=== PATIENT | male | born 1955 | race Caucasian/White ===

== ENCOUNTER → 2019-04-28 09:02 | Outpatient (BNVA) | payer MEDICARE, OTHER, SELFPAY | PROVIDERS: PCP Family Medicine; Visit Provider Nurse Practitioner Family | DX: E11.65 Type 2 diabetes mellitus with hyperglycemia (principal); Z12.5 Encounter for screening for malignant neoplasm of prostate; I10 Essential (primary) hypertension; D75.89 Other specified diseases of blood and blood-forming organs; E78.5 Hyperlipidemia, unspecified; M79.89 Other specified soft tissue disorders | CPT/HCPCS: 80053; 80061; 82044; 83036; 83735; 85025; G0103 ==

== ENCOUNTER → 2020-04-24 11:44 | Outpatient (BNVA) | payer MEDICARE, OTHER, SELFPAY | PROVIDERS: PCP Family Medicine; Visit Provider Family Medicine | DX: E11.65 Type 2 diabetes mellitus with hyperglycemia (principal); E78.5 Hyperlipidemia, unspecified; I10 Essential (primary) hypertension; Z12.5 Encounter for screening for malignant neoplasm of prostate | CPT/HCPCS: 80053; 80061; 83036; 84443; 85025; G0103 ==

== ENCOUNTER → 2020-07-31 09:26 | Outpatient (BNVA) | payer MEDICARE, OTHER, SELFPAY | PROVIDERS: PCP Family Medicine; Visit Provider Internal Medicine | DX: Z12.11 Encounter for screening for malignant neoplasm of colon (principal); Z20.822 Contact with and (suspected) exposure to COVID-19 | CPT/HCPCS: 87635 ==

== ENCOUNTER 2020-08-04 08:00 | Day surgery (SDC) | payer MEDICARE, OTHER, SELFPAY ==
[2020-08-02 12:20] VITALS: BMI 26.6
[2020-08-04 08:10] VITALS: BP 116/82; PULSE 87; RESP 18; TEMP 36.5; O2SAT 97
[2020-08-04] MEDS: sodium chloride 0.9% 1,000 ML 30 ML IV (08:14)
[2020-08-04 08:26] LABS: Glucose Point of Care 99 mg/dL (70-110)
--- NOTE | 2020-08-04 08:37 | ANES.PREANE2 ---
Pre-Anesthetic Assessment Pre-Anesthetic Assessment: Height/Weight: Height 1.91 m Weight 96.615 kg Temp Pulse Resp BP Pulse Ox 97.7 F 87 18 116/82 97 08/04/20 08:10 08/04/20 08:10 08/04/20 08:10 08/04/20 08:10 08/04/20 08:10 Preop Diagnosis: screen Proposed Procedure: Operation Date: 08/04/20 09:00 Proposed Procedures p Colonoscopy 61017 z12.11(Not Applicable) - Lio Jaffe MD Was Beta Sree taken within 24 hours: N/A Was Clonidine taken within 24 hours: N/A Last intake: Intake Last Liquid Date 08/03/20 Last Liquid Time 21:00 Last Solid Date 08/03/20 Last Solid Time 08:00 Social: Social History: Alcohol (4-5 drinks per day Beer and Liquor ) and No tobacco Exam: Pre-Anes Outpt Exam: alert and oriented x 3 Airway: Submandibular: WNL Cervical ROM: WNL MP: 2 Dentition: Full History/ROS: No significant history except as noted Pulmonary: Pulmonary: None reported CV/HEM: CV/HEM: HTN : : None reported Hepatic: Hepatic: None reported GI: GI: GERD (controlled no S/S currently) Metabolic: Metabolic: DM and Hyperlipidemia Musc/skel: Musc/skel: None reported Neuropsych: Neuropsych: None reported Anesthetic Plan: ASA status: 3 Anesthesia: Anesthesia Evaluation and MAC Risk of > 500 ml blood loss (7ml/kg in children): No Meds/Allergies Current Medications: Current Medications Generic Name Dose Route Start Last Admin Trade Name Freq PRN Reason Stop Dose Admin Sodium Chloride 1,000 mls @ 30 ml s/hr 08/04/20 08:15 08/04/20 08:14 Sodium Chloride 0.9% IV 08/05/20 08:14 30 mls/hr .Q24H VERONICA Administration PFSH Anesthesia PFSH: Medical History Chronic laryngitis Diabetes mellitus GERD (gastroesophageal reflux disease) Hyperlipidemia Hypertension Macrocytosis Neuropathy Surgical History No pertinent past surgical history Family History Mother Diabetes Sister Cancer Breast, melanoma Brother Cancer Melanoma Social History Smoking and tobacco status: never smoked Alcohol intake: current Alcohol intake frequency: few times a week Alcohol type: beer Lives independently: Yes Household members: spouse Housing: House Marital status: Current occupational status: retired History of recent travel: No Current gender identity: Male Data Anesthesia Other Labs: Laboratory Results - last 48 hr 08/04/20 08:22 POC Glucose 99 Cardiac Studies: No Data to Display
--- NOTE | 2020-08-04 09:13 | W.PM.OPSFHP ---
Same Day Surgery H&P Indication for Procedure/HPI DATE OF PROCEDURE: August 04, 2020 CHIEF COMPLAINT/INDICATIONFOR SURGICAL PROCEDURE: Screening PREOP DIAGNOSIS: screen PLANNED PROCEDRUE: Operation Date: 08/04/20 09:00 Proposed Procedures p Colonoscopy 55234 z12.11(Not Applicable) - Lio Jaffe MD Medications/Allergies* Home Medications Medication Instructions Recorded Confirmed Type magnesium oxide 400 mg (241.3 mg 400 mg PO DAILY 04/28/19 08/04/20 History magnesium) tablet Allergies/Adverse Reactions Allergy/AdvReac Type Severity Reaction Status Date / Time Iodinated Contrast Media Allergy ADR-Itching Verified 08/04/20 08:15 meperidine [From Demerol] Allergy Unknown Verified 08/04/20 08:15 Current Medications: Generic Name Dose Route Start Last Admin Trade Name Freq PRN Reason Stop Dose Admin Sodium Chloride 1,000 mls @ 30 mls/hr 08/04/20 08:15 08/04/20 08:14 Sodium Chloride 0.9% IV 08/05/20 08:14 30 mls/hr .Q24H VERONICA Administration Pertinent History/Comorbid Conditions* Medical History (Updated 07/18/20 @ 12:08 by Meagan Amezcua MD) Chronic laryngitis Diabetes mellitus GERD (gastroesophageal reflux disease) Hyperlipidemia Hypertension Macrocytosis Neuropathy Surgical History (Updated 04/24/20 @ 11:08 by Meagan Amezcua MD) No pertinent past surgical history Family History (Updated 04/28/19 @ 08:13 by Sabine Chauhan LPN, RT) Diabetes Mother Cancer Sister Breast, melanoma Brother Melanoma Social History Smoking and tobacco status: never smoked Alcohol intake: current Alcohol intake frequency: few times a week Alcohol type: beer Lives independently: Yes Household members: spouse Housing: House Marital status: Current occupational status: retired History of recent travel: No Current gender identity: Male Pertinent Exam Findings alert, oriented x 3, clear to auscultation bilaterally, regular rate & rhythm, operative site marked and procedure specific exam findings Recommendations Surgery/Procedure today Coding Level of Care Code Acute 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
[2020-08-04 09:39] VITALS: BP 91/66; PULSE 78; RESP 18; TEMP 36.3; O2SAT 96
[2020-08-04 09:59] VITALS: BP 104/70; PULSE 84; RESP 18; O2SAT 98
--- NOTE | 2020-08-04 10:43 | ANE.PACU2 ---
Inpatient post-anesthesia follow up: Airway intact: Yes Vital signs: Temperature 97.3 F Pulse Rate 84 Respiratory Rate 18 Blood Pressure 104/70 Pulse Oximetry 98 Oxygen Delivery Me thod Room Air Oxygen Flow Rate Fraction of Inspir ed Oxygen Hydration adequate: Yes Mental status: Baseline
== END 2020-08-04 10:01 | disposition home or self-care (01) ==
PROVIDERS: PCP Family Medicine; Visit Provider Internal Medicine
PROC: 0DJD8ZZ Inspection of Lower Intestinal Tract, Via Natural or Artificial Opening Endoscopic (ICD-10-PCS; CPT 45378; principal; 2020-08-04 09:00)
DX: Z12.11 Encounter for screening for malignant neoplasm of colon (principal); K21.9 Gastro-esophageal reflux disease without esophagitis; E78.5 Hyperlipidemia, unspecified; I10 Essential (primary) hypertension; E11.40 Type 2 diabetes mellitus with diabetic neuropathy, unspecified; Z83.3 Family history of diabetes mellitus
CPT/HCPCS: 36416; 82962; 96360; 96361; G0121; J2704; J7030

== ENCOUNTER → 2022-05-13 10:29 | Outpatient (BNVA) | payer OTHER, SELFPAY | PROVIDERS: PCP Family Medicine; Visit Provider Family Medicine | DX: E11.65 Type 2 diabetes mellitus with hyperglycemia (principal); E78.5 Hyperlipidemia, unspecified; I10 Essential (primary) hypertension; Z12.5 Encounter for screening for malignant neoplasm of prostate; R79.0 Abnormal level of blood mineral | CPT/HCPCS: 80053; 80061; 83036; 84443; G0103 ==

== ENCOUNTER → 2022-09-24 09:20 | Outpatient (BNVA) | payer OTHER, SELFPAY | PROVIDERS: PCP Family Medicine; Visit Provider Family Medicine | DX: M19.90 Unspecified osteoarthritis, unspecified site (principal); W57.XXXA Bitten or stung by nonvenomous insect and other nonvenomous arthropods, initial encounter | CPT/HCPCS: 86618; 86666; 86757 ==

== ENCOUNTER → 2023-05-19 10:21 | Outpatient (BNVA) | payer OTHER, SELFPAY | PROVIDERS: PCP Family Medicine; Visit Provider Family Medicine | DX: I10 Essential (primary) hypertension (principal); E78.5 Hyperlipidemia, unspecified; E11.65 Type 2 diabetes mellitus with hyperglycemia; Z12.5 Encounter for screening for malignant neoplasm of prostate | CPT/HCPCS: 80053; 80061; 83036; 84443; 85025; G0103 ==

== ENCOUNTER → 2024-05-13 12:25 | Outpatient (BNVA) | payer MEDICARE, SELFPAY | PROVIDERS: PCP Family Medicine; Visit Provider Family Medicine | DX: E11.9 Type 2 diabetes mellitus without complications (principal); E11.65 Type 2 diabetes mellitus with hyperglycemia; E78.5 Hyperlipidemia, unspecified; D75.89 Other specified diseases of blood and blood-forming organs; G47.62 Sleep related leg cramps | CPT/HCPCS: 80053; 80061; 82607; 83036; 83735; 84443; 85025 ==

== ENCOUNTER → 2024-05-26 10:33 | Outpatient (BNVA) | payer MEDICARE, SELFPAY | PROVIDERS: PCP Family Medicine; Visit Provider Family Medicine | DX: Z12.5 Encounter for screening for malignant neoplasm of prostate (principal) | CPT/HCPCS: G0103 ==

== ENCOUNTER 2024-11-12 12:39 | Outpatient (CLI) | payer MEDICARE, SELFPAY ==
--- NOTE | 2024-11-12 12:54 | PETR_ITS ---
PROCEDURE INFORMATION: Exam: PET/CT Skull Base to Mid-thigh Exam date and time: 11/12/2024 2:16 PM Age: 69 years old Clinical indication: Condition or disease; Primary cancer: Malignant neoplasm of esophagus, unspecified LABS AND CLINICAL REPORTS: Glucose: 154 mg/dl Treatment strategy for malignancy (PET staging): Initial Staging (PI) TECHNIQUE: Imaging protocol: Following at least four-hour fasting and following the injection of radiopharmaceutical, low dose CT images were obtained. Then, PET images were obtained. Attenuation corrected images were constructed using the CT scan. Fused images of PET and CT were reviewed. The standardized uptake values (SUV) reported below are maximum values within a region of interest, expressed in gm/ml. Exam includes orbital meatal line to mid-thigh. SUV normalization method: BodyWeight Radiopharmaceutical: 10.78 mCi F-18 FDG (Fluorodeoxyglucose), IV. Time of imaging post radiopharmaceutical administration: 49 minutes Injection site: right ac COMPARISON: No relevant prior studies available. FINDINGS: Brain: Visualized brain has normal physiologic uptake. Pharynx: No abnormal uptake. Larynx: No abnormal uptake. Lungs, pleura and trachea: No abnormal uptake. Heart: Normal physiologic uptake. Mediastinal space: No abnormal uptake. Esophagus: Hypermetabolic circumferential wall thickening of the mid esophagus with SUV max of 12.9, compatible with known malignancy. Liver: No abnormal uptake. Gallbladder and biliary ducts: No abnormal uptake. Pancreas: No abnormal uptake. Spleen: No abnormal uptake. Adrenal glands: No abnormal uptake. Kidneys and ureters: Normal physiologic uptake. Stomach and bowel: No abnormal uptake. Vasculature: No abnormal uptake. Lymph nodes: Hypermetabolic mediastinal, retrocrural, and supraclavicular lymphadenopathy including 1 cm left supraclavicular lymph node with SUV max of 15.4, 1.9 cm high left paratracheal lymph node with SUV max 12.0, 1.7 cm retrocrural lymph node in the upper abdomen with SUV max of 13.9, and 3.5 cm subcarinal lymph node with SUV max of 15.0. There is a mildly avid 9 mm perigastric lymph node (image 182) with SUV max of 4.5. Skeleton: No abnormal uptake in the visualized axial and appendicular skeleton. Soft tissues: No abnormal uptake in the visualized head, neck, chest, abdomen, pelvis, and extremities. METRICS: Mediastinal blood pool: SUV max = 2.5 Liver uptake: SUV max = 2.9 PET/PET skull to thigh INIT [id number] IMPRESSION: 1. Hypermetabolic circumferential wall thickening of the mid esophagus, compatible with known malignancy. 2. Hypermetabolic mediastinal, retrocrural, supraclavicular, and perigastric metastatic lymphadenopathy extending from the lower neck to the upper abdomen described above.
== END 2024-11-12 12:40 | disposition home or self-care (01) ==
LOC: RAD 12:39
PROVIDERS: PCP Family Medicine; Visit Provider Family Medicine
DX: C15.9 Malignant neoplasm of esophagus, unspecified (principal); C77.8 Secondary and unspecified malignant neoplasm of lymph nodes of multiple regions
CPT/HCPCS: 78815; A9552

== ENCOUNTER 2024-11-22 12:53 | Oncology outpatient (recurring) (ONCR) | payer MEDICARE, SELFPAY | END 2024-11-23 23:59 | disposition home or self-care (01) | PROVIDERS: PCP Family Medicine; Visit Provider Internal Medicine Medical Oncology | DX: C15.9 Malignant neoplasm of esophagus, unspecified (principal); Z87.891 Personal history of nicotine dependence | CPT/HCPCS: 99214 ==

== ENCOUNTER → 2024-11-25 11:39 | Outpatient (BNVA) | payer MEDICARE, SELFPAY | PROVIDERS: PCP Family Medicine; Referring Provider Internal Medicine Medical Oncology; Visit Provider Student in an Organized Health Care Education/Training Program | DX: Z95.828 Presence of other vascular implants and grafts (principal) | CPT/HCPCS: 99204 ==

== ENCOUNTER 2024-12-01 06:43 | Day surgery (SDC) | payer MEDICARE, SELFPAY ==
[2024-12-01] VITALS (8 sets, daily range): BP systolic 111–123; BP diastolic 71–77; PULSE 66–75; RESP 16–18; TEMP 36.1–36.6; O2SAT 96–99; BMI 23.1
--- NOTE | 2024-12-01 07:04 | SC_ITS ---
WS: [id number] C-arm fluoroscopy for insertion of right infusion port, 12/01/2024 Clinical Data: Insertion Port-A-Cath Comparison: None. Findings: Dr. Queen inserted a right infusion port via of the right internal jugular vein. SC/C-arm FL for CVA 80021 Impression: Insertion of right infusion port.
--- NOTE | 2024-12-01 07:14 | ANES.PREANE2 ---
Pre-Anesthetic Assessment Height/Weight: Height 6 ft 3 in Preop Diagnosis: Esophageal mass Operation Date: 12/01/24 08:15 Proposed Procedures p Port a Cath Insertion 10761 Z95.828(Not Applicable) - Ej Queen MD Was Beta Sree taken within 24 hours: Yes Was Clonidine taken within 24 hours: N/A Social No alcohol and No tobacco Exam alert, oriented x 3, clear to auscultation bilaterally and regular rate & rhythm Airway Submandibular: within normal limits Cervical ROM: within normal limits Mallampati: Class III Comments: Comments: Very large garcia, most likely will be a difficult mask Anesthetic Plan ASA status: 4 Anesthesia: MAC Other: No prior issues with anesthesia NPO since yesterday evening History of hypertension on lisinopril?HCTZ and metoprolol GERD, controlled with Protonix Type 2 diabetes, on sitagliptin p.o., last taken yesterday morning Patient has a partially obstructing malignant esophageal mass, squamous cell carcinoma. Patient states that he has been having mild difficulty with swallowing Medications/Allergies Home Medications ?Medication ?Instructions ?Recorded ?Confirmed ?Last Taken ?Type magnesium oxide 400 mg (241.3 mg 400 mg PO DAILY 04/28/19 11/30/24 08/03/20 History magnesium) tablet (MagOx) blood-glucose meter #1 ea 05/13/22 11/25/24 Unknown Rx blood sugar diagnostic (Blood #50 ea 05/23/23 11/25/24 Unknown Rx Glucose Test strips) lancets 31 gauge (Comfort Touch #100 ea 05/23/23 11/25/24 Unknown Rx Ultra Thin Lancets) lancets 33 gauge (OneTouch Delica #100 ea 05/13/24 11/25/24 Unknown History Plus Lancet) lisinopril 20 1 tab PO DAILY #90 tabs 05/19/24 11/30/24 11/30/24 Rx mg-hydrochlorothiazide 12.5 mg tablet meloxicam 15 mg tablet 15 mg PO DAILY #90 tabs 05/19/24 11/30/24 11/29/24 Rx metoprolol succinate 100 mg 100 mg PO DAILY #90 tabs 05/19/24 11/30/24 11/30/24 Rx tablet,extended release 24 hr (Toprol XL) tamsulosin 0.4 mg capsule 0.4 mg PO DAILY #90 caps 08/23/24 11/30/24 Unknown Rx pantoprazole 40 mg tablet,delayed 40 mg PO DAILY #30 tabs 09/02/24 11/30/24 11/30/24 Rx release metformin 500 mg tablet 500 mg PO BID #60 tabs 10/28/24 11/30/24 11/30/24 Rx sitagliptin phosphate 50 mg tablet 50 mg PO DAILY #30 tabs 10/28/24 11/30/24 Unknown Rx ondansetron HCl 4 mg tablet 4 mg PO Q6H PRN nausea and 11/22/24 11/30/24 Unknown Rx vomiting #30 tabs prochlorperazine maleate 10 mg 10 mg PO Q4H PRN mild nausea #30 11/22/24 11/30/24 Unknown Rx tablet (Compazine) tabs glipizide 2.5 mg tablet, extended 2.5 mg PO DAILY #90 tabs 11/25/24 11/30/24 11/30/24 Rx release 24 hr Allergies Allergy/AdvReac Type Severity Reaction Status Date / Time Iodinated Contrast Media Allergy ADR-Itching Verified 12/01/24 07:11 meperidine (From Demerol) Allergy Unresponsiv Verified 12/01/24 07:11 e [facility] Anesthesia Medical History Chronic laryngitis Neuropathy GERD (gastroesophageal reflux disease) Macrocytosis Hypertension Hyperlipidemia Diabetes mellitus Surgical History History of repair of right rotator cuff Family History Mother Diabetes Sister Cancer Breast, melanoma Brother Cancer Melanoma Social History Smoking and tobacco/nicotine status: never used tobacco/nicotine Quit status (tobacco/nicotine): has quit using Former quit date comment: smoked as a teen & early 20s Alcohol intake: current Alcohol intake frequency: few times a week Alcohol type: beer Substance/Drug Use: never Lives independently: Yes Household members: spouse Housing: House Marital status: Current occupational status: retired 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
--- NOTE | 2024-12-01 07:34 | W.PM.OPSUD ---
Surgery/Procedure H&P Update DATE OF PROCEDURE: December 01, 2024 DATE H&P PERFORMED: 11/25/24 H&P UPDATE INFORMATION: I have reviewed H&P completed within last 30 days, I have examined patient prior to procedure, No changes to prior documentation and Risks and benefits of the procedure reviewed PREOP DIAGNOSIS: Esophageal mass PLANNED PROCEDURE: Operation Date: 12/01/24 08:15 Proposed Procedures p Port a Cath Insertion 26918 Z95.828(Not Applicable) - Ej Queen MD
[2024-12-01] MEDS: ceFAZolin 2,000 mg SDV 2000 MG IVP (08:15)
[2024-12-01] MEDS: BUPivacaine 0.25% INJ 10 mL 4 ML INJECTION (08:30)
[2024-12-01] MEDS: lidocaine-epi 1% 20 mL INJ 4 ML INJECTION (08:30)
[2024-12-01] MEDS: heparin, porcine 1,000 unit/mL INJ 10 mL 3000 UNIT INTRACATH (08:35)
--- NOTE | 2024-12-01 08:38 | PM.OP ---
Operative Report Date of procedure: December 01, 2024 Pre-op diagnosis: Esophageal cancer Post-op diagnosis: same Post-op findings: Tip of catheter at atriocaval junction confirmed with intraoperative fluoroscopy Procedure done: Port-A-Cath insertion Implants: Port-A-Cath Specimens removed/disposition: N/A Pathology: none sent Surgeon: Ej Queen MD Quality Control Tech: N/A Anesthesia: MAC Estimated blood loss (mL): 10 Complications: N/A Findings: Tip of catheter at atriocaval junction confirmed with intraoperative fluoroscopy Condition: stable Disposition: same day Brief History: 69-year-old male with history of esophageal cancer. Needs port for chemotherapy. Discussed risk and benefits and patient agreed to proceed with Port-A-Cath insertion. Procedure: Patient was brought into the operating room and a timeout was carried out. Procedure was done under MAC. Patient was placed supine with the arms tucked and in Trendelenburg. Patient was prepped and draped in the usual sterile fashion. Using ultrasound guidance the right internal jugular vein was accessed. A guidewire was then placed down to the atriocaval junction using fluoroscopy. The finder needle was removed and the guidewire was secured. I then turned my attention to creating a pocket over the right chest. Make sure to locally infiltrated using plain lidocaine and bupivacaine at the site of the pocket and throughout the tunnel site. I confirmed adequate hemostasis at the pocket. I then proceeded to place the port that was already preassembled and flushed with heparinized saline and the chest pocket. I tunneled the catheter from the chest to the neck at the site where I accessed the internal jugular vein. I measured and adjusted the length of the catheter so it would reach the atrial caval junction. At this point, I used a dilator to dilate the tract into the internal jugular vein using fluoroscopy. I removed the guidewire and proceeded to thread the central venous catheter through the introducer. In the process, I removed the sheath as a completely pushed the catheter into the internal jugular vein. I then confirmed adequate placement of the catheter by performing intraoperative interpretation of fluoroscopy. The tip of the catheter was confirmed to be placed in the atriocaval junction. There were no kinks noted throughout the trajectory of the catheter. I then proceeded to test the port and was satisfied with its functionality. I proceeded to flushed the catheter without any issues. I then hep-locked the port. Skin was closed using deep dermal 3-0 Vicryl, subcuticular 4-0 Monocryl, and Dermabond. Patient was then transferred to PACU without any complications.
[2024-12-01] MEDS: fentaNYL 50 mcg/mL INJ 2mL 100 MCG (08:50)
--- NOTE | 2024-12-01 09:55 | ANE.PACU2 ---
Inpatient post-anesthesia follow up: Airway intact: Yes Vital signs: Temperature 97 F Pulse Rate 66 Respiratory Rate 18 Blood Pressure 117/73 Pulse Oximetry 99 Oxygen Delivery Me thod Room Air Oxygen Flow Rate Fraction of Inspir ed Oxygen Hydration adequate: Yes Nausea and vomiting: No Pain level: 1 Mental status: Baseline
== END 2024-12-01 09:55 | disposition home or self-care (01) ==
PROVIDERS: PCP Family Medicine; Visit Provider Student in an Organized Health Care Education/Training Program
PROC: (CPT 36561; principal; 2024-12-01 08:15)
DX: C15.9 Malignant neoplasm of esophagus, unspecified (principal); I10 Essential (primary) hypertension; K21.9 Gastro-esophageal reflux disease without esophagitis; E11.9 Type 2 diabetes mellitus without complications; E78.5 Hyperlipidemia, unspecified; Z87.891 Personal history of nicotine dependence; Z79.84 Long term (current) use of oral hypoglycemic drugs; Z80.3 Family history of malignant neoplasm of breast; Z80.8 Family history of malignant neoplasm of other organs or systems
CPT/HCPCS: 36561; 36416; 77001; 82962; C1788; J0690; J1644; J2704; J3010; J3490; J7030; J9999

== ENCOUNTER 2024-12-06 09:11 | Oncology outpatient (recurring) (ONCR) | payer MEDICARE, SELFPAY ==
[2024-12-06 09:40] LABS: Hematocrit 31.0 % (37-53); Hemoglobin 10.10 g/dL (11.27-16.99); Mean Corpuscular HGB Conc 32.6 g/dL (30-55); Mean Corpuscular Hemoglobin 30.8 pg (27-33); Mean Corpuscular Volume 94.5 fl (82-101); Nucleated Red Blood Cells % 0 %; Platelet Count 241 10^3/cmm (157-399); Red Blood Count 3.28 10^6/uL (3.85-5.65); White Blood Count 8.44 10^3/uL (3.29-11.43)
[2024-12-06 09:56] LABS: Alanine Aminotransferase 9 U/L (0-41); Albumin Level 4.3 g/dL (3.5-5.2); Alkaline Phosphatase 62 U/L (40-130); Anion Gap 16.5 (5-19); Aspartate Amino Transferase 20 U/L (0-40); Blood Urea Nitrogen 29 mg/dL (8-23); Calcium 9.5 mg/dL (8.5-10.5); Carbon Dioxide 26 mmol/L (22-29); Chloride 100 mmol/L (98-107); Creatinine Clr Calc Pharmacy 66.1197; Globulin 2.7 g/dL (1.3-4.6); Glucose 198 mg/dL (65-115); Osmolality Calculated 297 mOsm/kg (285-295); Potassium 4.5 mmol/L (3.5-5.1); Sodium 138 mmol/L (136-145); Total Protein 7.0 g/dL (6.6-8.7)
[2024-12-06] MEDS: dexamethasone 4 mg/mL INJ 5 mL 12 MG IVP (11:25)
[2024-12-06] MEDS: nivolumab 240 MG in sodium chloride 0.9% 250 ML 548 MG IV (11:40)
[2024-12-06] MEDS: leucovorin 870 MG in dextrose 5% 250 ML 168.5 MG IV (12:49)
[2024-12-06] MEDS: oxaliplatin 184 MG in dextrose 5% 250 ML 143.4 MG IV (12:50)
[2024-12-06] MEDS: fluorouraciL 50 mg/ml MDV 100 mL 850 MG IVP (15:01)
[2024-12-06] MEDS: fluorouraciL 5,200 MG, elastomeric pump 1 PUMP in sodium chloride 0.9% (100 ml) 126 ML IV (15:01)
[2024-12-06 15:09] VITALS: BP 105/64; PULSE 58; RESP 17; TEMP 36.4; O2SAT 95
== END 2024-12-06 23:59 | disposition home or self-care (01) ==
PROVIDERS: Nurse Practitioner Family; PCP Family Medicine; Visit Provider Internal Medicine Medical Oncology
DX: Z51.11 Encounter for antineoplastic chemotherapy (principal); Z51.12 Encounter for antineoplastic immunotherapy; C15.9 Malignant neoplasm of esophagus, unspecified; F41.9 Anxiety disorder, unspecified; Z87.891 Personal history of nicotine dependence; Z79.899 Other long term (current) drug therapy; Z79.52 Long term (current) use of systemic steroids; Z79.631 Long term (current) use of antimetabolite agent
CPT/HCPCS: 80053; 85025; 96368; 96375; 96411; 96413; 96415; 96416; 96417; 99215; A4222; J0640; J1100; J2469; J7050; J7060; J9190; J9263; J9299; J9999

== ENCOUNTER 2024-12-20 07:37 | Oncology outpatient (recurring) (ONCR) | payer MEDICARE, SELFPAY ==
[2024-12-13 09:49] LABS: Hematocrit 32.9 % (37-53); Hemoglobin 10.80 g/dL (11.27-16.99); Mean Corpuscular HGB Conc 32.8 g/dL (30-55); Mean Corpuscular Hemoglobin 30.3 pg (27-33); Mean Corpuscular Volume 92.4 fl (82-101); Nucleated Red Blood Cells % 0 %; Platelet Count 215 10^3/cmm (157-399); Red Blood Count 3.56 10^6/uL (3.85-5.65); White Blood Count 7.95 10^3/uL (3.29-11.43)
[2024-12-13 10:05] LABS: Alanine Aminotransferase 12 U/L (0-41); Albumin Level 4.4 g/dL (3.5-5.2); Alkaline Phosphatase 63 U/L (40-130); Anion Gap 16.3 (5-19); Aspartate Amino Transferase 15 U/L (0-40); Blood Urea Nitrogen 33 mg/dL (8-23); Calcium 9.5 mg/dL (8.5-10.5); Carbon Dioxide 26 mmol/L (22-29); Chloride 96 mmol/L (98-107); Globulin 3.2 g/dL (1.3-4.6); Glucose 188 mg/dL (65-115); Osmolality Calculated 290 mOsm/kg (285-295); Potassium 4.3 mmol/L (3.5-5.1); Sodium 134 mmol/L (136-145); Total Protein 7.6 g/dL (6.6-8.7)
[2024-12-20 07:51] LABS: Hematocrit 31.0 % (37-53); Hemoglobin 10.30 g/dL (11.27-16.99); Mean Corpuscular HGB Conc 33.2 g/dL (30-55); Mean Corpuscular Hemoglobin 30.9 pg (27-33); Mean Corpuscular Volume 93.1 fl (82-101); Nucleated Red Blood Cells % 0 %; Platelet Count 177 10^3/cmm (157-399); Red Blood Count 3.33 10^6/uL (3.85-5.65); White Blood Count 7.85 10^3/uL (3.29-11.43)
[2024-12-20 08:22] LABS: Alanine Aminotransferase 14 U/L (0-41); Albumin Level 4.3 g/dL (3.5-5.2); Alkaline Phosphatase 73 U/L (40-130); Anion Gap 15.4 (5-19); Aspartate Amino Transferase 20 U/L (0-40); Blood Urea Nitrogen 27 mg/dL (8-23); Calcium 9.5 mg/dL (8.5-10.5); Carbon Dioxide 25 mmol/L (22-29); Chloride 98 mmol/L (98-107); Creatinine Clr Calc Pharmacy 70.2687; Globulin 3.0 g/dL (1.3-4.6); Glucose 132 mg/dL (65-115); Osmolality Calculated 285 mOsm/kg (285-295); Potassium 4.4 mmol/L (3.5-5.1); Sodium 134 mmol/L (136-145); Thyroid Stimulating Hormone 3.44 uIU/mL (0.27-4.20); Total Protein 7.3 g/dL (6.6-8.7)
[2024-12-20] MEDS: dexamethasone 4 mg/mL INJ 5 mL 12 MG IVP (09:02)
[2024-12-20] MEDS: nivolumab 240 MG in sodium chloride 0.9% 250 ML 548 MG IV (09:38)
[2024-12-20] MEDS: leucovorin 850 MG in dextrose 5% 250 ML 167.5 MG IV (10:25)
[2024-12-20] MEDS: fluorouraciL 50 mg/ml MDV 100 mL 850 MG IVP (12:53)
[2024-12-20] MEDS: fluorouraciL 5,100 MG, elastomeric pump 1 PUMP in sodium chloride 0.9% (100 ml) 128 ML IV (12:54)
== END 2024-12-20 23:59 | disposition home or self-care (01) ==
PROVIDERS: Nurse Practitioner Family; PCP Family Medicine; Visit Provider Internal Medicine Medical Oncology
DX: Z51.11 Encounter for antineoplastic chemotherapy; Z51.12 Encounter for antineoplastic immunotherapy; C15.9 Malignant neoplasm of esophagus, unspecified; Z79.52 Long term (current) use of systemic steroids; Z79.899 Other long term (current) drug therapy; Z79.620 Long term (current) use of immunosuppressive biologic; Z79.631 Long term (current) use of antimetabolite agent; Z87.891 Personal history of nicotine dependence; Z53.9 Procedure and treatment not carried out, unspecified reason
CPT/HCPCS: 36591; 80053; 84443; 85025; 96368; 96375; 96411; 96413; 96415; 96416; 96417; 96523; 99214; A4222; J0640; J1100; J2469; J7050; J7060; J9190; J9263; J9299

== ENCOUNTER 2024-12-21 08:14 | Oncology outpatient (recurring) (ONCR) | payer MEDICARE, SELFPAY | END 2024-12-21 08:15 | disposition home or self-care (01) | LOC: ONCMED 08:15 | PROVIDERS: PCP Family Medicine; Visit Provider Internal Medicine Medical Oncology | DX: Z53.9 Procedure and treatment not carried out, unspecified reason (principal) ==

== ENCOUNTER → 2024-12-23 11:17 | Outpatient (BNVA) | payer MEDICARE, SELFPAY | PROVIDERS: PCP Family Medicine; Visit Provider Student in an Organized Health Care Education/Training Program | DX: Z95.828 Presence of other vascular implants and grafts (principal) | CPT/HCPCS: 99024 ==

== ENCOUNTER 2025-01-03 07:35 | Oncology outpatient (recurring) (ONCR) | payer MEDICARE, SELFPAY ==
[2025-01-03 07:59] LABS: Hematocrit 32.7 % (37-53); Hemoglobin 10.70 g/dL (11.27-16.99); Mean Corpuscular HGB Conc 32.7 g/dL (30-55); Mean Corpuscular Hemoglobin 30.8 pg (27-33); Mean Corpuscular Volume 94.2 fl (82-101); Nucleated Red Blood Cells % 0 %; Platelet Count 111 10^3/cmm (157-399); Red Blood Count 3.47 10^6/uL (3.85-5.65); White Blood Count 6.99 10^3/uL (3.29-11.43)
[2025-01-03 08:29] LABS: Alanine Aminotransferase 45 U/L (0-41); Albumin Level 4.3 g/dL (3.5-5.2); Alkaline Phosphatase 72 U/L (40-130); Anion Gap 16.3 (5-19); Aspartate Amino Transferase 48 U/L (0-40); Blood Urea Nitrogen 16 mg/dL (8-23); Calcium 9.7 mg/dL (8.5-10.5); Carbon Dioxide 24 mmol/L (22-29); Chloride 103 mmol/L (98-107); Creatinine Clr Calc Pharmacy 70.0703; Globulin 2.9 g/dL (1.3-4.6); Glucose 132 mg/dL (65-115); Osmolality Calculated 291 mOsm/kg (285-295); Potassium 4.3 mmol/L (3.5-5.1); Sodium 139 mmol/L (136-145); Thyroid Stimulating Hormone 2.80 uIU/mL (0.27-4.20); Total Protein 7.2 g/dL (6.6-8.7)
[2025-01-03] MEDS: dexamethasone 4 mg/mL INJ 5 mL 12 MG IVP (08:57)
[2025-01-03] MEDS: nivolumab 240 MG in sodium chloride 0.9% 250 ML 548 MG IV (09:00)
[2025-01-03] MEDS: leucovorin 850 MG in dextrose 5% 250 ML 167.5 MG IV (09:56)
[2025-01-03] MEDS: fluorouraciL 50 mg/ml MDV 100 mL 850 MG IVP (12:00)
[2025-01-03] MEDS: fluorouraciL 5,100 MG, elastomeric pump 1 PUMP in sodium chloride 0.9% (100 ml) 128 ML IV (12:06)
== END 2025-01-03 23:59 | disposition home or self-care (01) ==
PROVIDERS: Nurse Practitioner Family; PCP Family Medicine; Visit Provider Internal Medicine Medical Oncology
DX: Z51.11 Encounter for antineoplastic chemotherapy (principal); Z51.12 Encounter for antineoplastic immunotherapy; C15.9 Malignant neoplasm of esophagus, unspecified; R74.01 Elevation of levels of liver transaminase levels; Z87.891 Personal history of nicotine dependence; Z95.828 Presence of other vascular implants and grafts; Z79.899 Other long term (current) drug therapy; Z79.52 Long term (current) use of systemic steroids; Z79.620 Long term (current) use of immunosuppressive biologic; Z79.631 Long term (current) use of antimetabolite agent
CPT/HCPCS: 80053; 84443; 85025; 96368; 96375; 96411; 96413; 96415; 96416; 96417; 99214; A4222; J0640; J1100; J2469; J7050; J7060; J9190; J9263; J9299

== ENCOUNTER 2025-01-17 07:31 | Oncology outpatient (recurring) (ONCR) | payer MEDICARE, SELFPAY ==
[2025-01-17 07:53] LABS: Hematocrit 28.6 % (37-53); Hemoglobin 9.50 g/dL (11.27-16.99); Mean Corpuscular HGB Conc 33.2 g/dL (30-55); Mean Corpuscular Hemoglobin 30.7 pg (27-33); Mean Corpuscular Volume 92.6 fl (82-101); Nucleated Red Blood Cells % 0 %; Platelet Count 104 10^3/cmm (157-399); Red Blood Count 3.09 10^6/uL (3.85-5.65); White Blood Count 4.34 10^3/uL (3.29-11.43)
[2025-01-17 08:22] LABS: Alanine Aminotransferase 22 U/L (0-41); Albumin Level 4.0 g/dL (3.5-5.2); Alkaline Phosphatase 75 U/L (40-130); Anion Gap 15.4 (5-19); Aspartate Amino Transferase 23 U/L (0-40); Blood Urea Nitrogen 19 mg/dL (8-23); Calcium 9.3 mg/dL (8.5-10.5); Carbon Dioxide 22 mmol/L (22-29); Chloride 105 mmol/L (98-107); Globulin 3.0 g/dL (1.3-4.6); Glucose 241 mg/dL (65-115); Osmolality Calculated 296 mOsm/kg (285-295); Potassium 4.4 mmol/L (3.5-5.1); Sodium 138 mmol/L (136-145); Thyroid Stimulating Hormone 2.65 uIU/mL (0.27-4.20); Total Protein 7.0 g/dL (6.6-8.7)
[2025-01-17] MEDS: dexamethasone 4 mg/mL INJ 5 mL 12 MG IVP (08:51)
[2025-01-17] MEDS: nivolumab 240 MG in sodium chloride 0.9% 250 ML 548 MG IV (08:59)
[2025-01-17] MEDS: leucovorin 840 MG in dextrose 5% 250 ML 125 MG IV (09:50)
[2025-01-17] MEDS: fluorouraciL 50 mg/ml MDV 100 mL 850 MG IVP (12:07)
[2025-01-17] MEDS: fluorouraciL 5,050 MG, elastomeric pump 1 PUMP in sodium chloride 0.9% (100 ml) 129 ML IV (12:08)
[2025-01-17 12:30] VITALS: BP 136/78; PULSE 84; RESP 17; TEMP 36.3; O2SAT 98
== END 2025-01-17 23:59 | disposition home or self-care (01) ==
PROVIDERS: Nurse Practitioner Family; PCP Family Medicine; Visit Provider Internal Medicine Medical Oncology
DX: Z51.11 Encounter for antineoplastic chemotherapy (principal); C15.9 Malignant neoplasm of esophagus, unspecified; Z79.899 Other long term (current) drug therapy; Z87.891 Personal history of nicotine dependence; Z45.1 Encounter for adjustment and management of infusion pump; Z95.828 Presence of other vascular implants and grafts; R06.02 Shortness of breath
CPT/HCPCS: 80053; 84443; 85025; 96368; 96374; 96375; 96413; 96415; 96416; 96417; 99214; A4222; J0640; J1100; J2469; J7050; J7060; J9190; J9263; J9299

== ENCOUNTER 2025-02-07 08:04 | Oncology outpatient (recurring) (ONCR) | payer MEDICARE, SELFPAY ==
[2025-01-31 07:56] LABS: Hematocrit 29.5 % (37-53); Hemoglobin 10.00 g/dL (11.27-16.99); Mean Corpuscular HGB Conc 33.9 g/dL (30-55); Mean Corpuscular Hemoglobin 31.2 pg (27-33); Mean Corpuscular Volume 91.9 fl (82-101); Nucleated Red Blood Cells % 0 %; Platelet Count 127 10^3/cmm (157-399); Red Blood Count 3.21 10^6/uL (3.85-5.65); White Blood Count 2.41 10^3/uL (3.29-11.43)
[2025-01-31 08:41] LABS: Alanine Aminotransferase 18 U/L (0-41); Albumin Level 3.9 g/dL (3.5-5.2); Alkaline Phosphatase 84 U/L (40-130); Anion Gap 16.5 (5-19); Aspartate Amino Transferase 24 U/L (0-40); Blood Urea Nitrogen 22 mg/dL (8-23); Calcium 9.5 mg/dL (8.5-10.5); Carbon Dioxide 21 mmol/L (22-29); Chloride 102 mmol/L (98-107); Ferritin 643 ng/mL (30-400); Globulin 3.3 g/dL (1.3-4.6); Glucose 321 mg/dL (65-115); Iron 45 ug/dL (59-158); Osmolality Calculated 296 mOsm/kg (285-295); Potassium 4.5 mmol/L (3.5-5.1); Sodium 135 mmol/L (136-145); Thyroid Stimulating Hormone 3.31 uIU/mL (0.27-4.20); Total Iron Binding Capacity 272 mcg/dl; Total Protein 7.2 g/dL (6.6-8.7); Unsaturated Iron Binding 227 ug/dL (112-347); Vitamin B12 684 pg/mL (232-1245)
[2025-01-31 08:50] LABS: Slide Review Slide Review Perform
[2025-01-31 19:43] LABS: Estmated Average Glucose 217; Hemoglobin A1C 9.2 % (4.0-6.0)
[2025-02-07 08:46] LABS: Hematocrit 31.0 % (37-53); Hemoglobin 10.40 g/dL (11.27-16.99); Mean Corpuscular HGB Conc 33.5 g/dL (30-55); Mean Corpuscular Hemoglobin 30.9 pg (27-33); Mean Corpuscular Volume 92.0 fl (82-101); Platelet Count 339 10^3/cmm (157-399); Red Blood Count 3.37 10^6/uL (3.85-5.65); White Blood Count 10.03 10^3/uL (3.29-11.43)
[2025-02-07 08:54] LABS: Alanine Aminotransferase 24 U/L (0-41); Albumin Level 3.9 g/dL (3.5-5.2); Alkaline Phosphatase 73 U/L (40-130); Anion Gap 18.4 (5-19); Aspartate Amino Transferase 29 U/L (0-40); Blood Urea Nitrogen 30 mg/dL (8-23); Calcium 9.4 mg/dL (8.5-10.5); Carbon Dioxide 22 mmol/L (22-29); Chloride 98 mmol/L (98-107); Globulin 3.5 g/dL (1.3-4.6); Glucose 273 mg/dL (65-115); Osmolality Calculated 294 mOsm/kg (285-295); Potassium 4.4 mmol/L (3.5-5.1); Sodium 134 mmol/L (136-145); Total Protein 7.4 g/dL (6.6-8.7)
[2025-02-07 08:58] LABS: Slide Review Slide Review Perform
[2025-02-07 09:01] LABS: Absolute Segmented Neutrophil 4.2 10/cmm (1.6-7.1); Band Neutrophils Absolute 0.5 10^3/cmm (0.0-1.2); Total Cells Counted 100 (0-100)
[2025-02-07 09:02] LABS: Atypical Lymphs 0.0 % (0-5)
[2025-02-07] MEDS: dexamethasone 4 mg/mL INJ 5 mL 12 MG IVP (09:44)
[2025-02-07] MEDS: nivolumab 240 MG in sodium chloride 0.9% 250 ML 548 MG IV (10:08)
[2025-02-07] MEDS: leucovorin 820 MG in dextrose 5% 250 ML 125 MG IV (10:44)
[2025-02-07] MEDS: oxaliplatin 176 MG in dextrose 5% 250 ML 142.6 MG IV (10:44)
[2025-02-07] MEDS: fluorouraciL 50 mg/ml MDV 100 mL 800 MG IVP (12:58)
[2025-02-07 13:07] VITALS: BP 99/63; PULSE 73; RESP 17; TEMP 36.4; O2SAT 96
== END 2025-02-07 23:59 | disposition home or self-care (01) ==
PROVIDERS: Internal Medicine Medical Oncology; PCP Family Medicine; Visit Provider Nurse Practitioner Family
DX: Z51.11 Encounter for antineoplastic chemotherapy; Z51.12 Encounter for antineoplastic immunotherapy; C15.8 Malignant neoplasm of overlapping sites of esophagus; D70.9 Neutropenia, unspecified; Z79.899 Other long term (current) drug therapy; Z79.52 Long term (current) use of systemic steroids; Z79.620 Long term (current) use of immunosuppressive biologic; Z79.631 Long term (current) use of antimetabolite agent; Z87.891 Personal history of nicotine dependence; Z53.9 Procedure and treatment not carried out, unspecified reason
CPT/HCPCS: 80053; 82607; 82728; 82746; 83036; 83540; 83550; 83615; 84443; 85007; 85025; 96367; 96375; 96411; 96413; 96415; 96416; 96417; 99214; 99215; A4222; J0640; J1100; J2469; J7050; J7060; J9190; J9263; J9299

== ENCOUNTER 2025-02-21 08:01 | Oncology outpatient (recurring) (ONCR) | payer MEDICARE, SELFPAY ==
[2025-02-21 08:20] LABS: Hematocrit 29.5 % (37-53); Hemoglobin 9.80 g/dL (11.27-16.99); Mean Corpuscular HGB Conc 33.2 g/dL (30-55); Mean Corpuscular Hemoglobin 30.8 pg (27-33); Mean Corpuscular Volume 92.8 fl (82-101); Nucleated Red Blood Cells % 0 %; Platelet Count 111 10^3/cmm (157-399); Red Blood Count 3.18 10^6/uL (3.85-5.65); White Blood Count 5.92 10^3/uL (3.29-11.43)
[2025-02-21 08:55] LABS: Alanine Aminotransferase 20 U/L (0-41); Albumin Level 3.9 g/dL (3.5-5.2); Alkaline Phosphatase 59 U/L (40-130); Anion Gap 16.5 (5-19); Aspartate Amino Transferase 31 U/L (0-40); Blood Urea Nitrogen 21 mg/dL (8-23); Calcium 9.4 mg/dL (8.5-10.5); Carbon Dioxide 20 mmol/L (22-29); Chloride 105 mmol/L (98-107); Globulin 2.9 g/dL (1.3-4.6); Glucose 181 mg/dL (65-115); Osmolality Calculated 292 mOsm/kg (285-295); Potassium 4.5 mmol/L (3.5-5.1); Sodium 137 mmol/L (136-145); Thyroid Stimulating Hormone 2.74 uIU/mL (0.27-4.20); Total Protein 6.8 g/dL (6.6-8.7)
[2025-02-21] MEDS: dexamethasone 4 mg/mL INJ 5 mL 12 MG IVP (10:19)
[2025-02-21] MEDS: nivolumab 240 MG in sodium chloride 0.9% 250 ML 548 MG IV (10:31)
[2025-02-21] MEDS: leucovorin 820 MG in dextrose 5% 250 ML 125 MG IV (11:25)
[2025-02-21] MEDS: oxaliplatin 176 MG in dextrose 5% 250 ML 142.6 MG IV (11:25)
[2025-02-21] MEDS: fluorouraciL 50 mg/ml MDV 100 mL 800 MG IVP (13:45)
[2025-02-21] MEDS: fluorouraciL 4,950 MG in elastomeric pump 1 PUMP IV (13:50)
== END 2025-02-21 23:59 | disposition home or self-care (01) ==
PROVIDERS: Internal Medicine Medical Oncology; PCP Family Medicine; Visit Provider Nurse Practitioner Family
DX: Z51.11 Encounter for antineoplastic chemotherapy (principal); Z51.12 Encounter for antineoplastic immunotherapy; C15.8 Malignant neoplasm of overlapping sites of esophagus; C77.9 Secondary and unspecified malignant neoplasm of lymph node, unspecified; R13.10 Dysphagia, unspecified; F41.9 Anxiety disorder, unspecified; F32.A Depression, unspecified; Z79.52 Long term (current) use of systemic steroids; Z87.891 Personal history of nicotine dependence; Z95.828 Presence of other vascular implants and grafts; Z79.899 Other long term (current) drug therapy; Z79.631 Long term (current) use of antimetabolite agent; Z79.620 Long term (current) use of immunosuppressive biologic
CPT/HCPCS: 80053; 84443; 85025; 96368; 96375; 96411; 96413; 96416; 96417; 99214; A4222; J0640; J1100; J2469; J7050; J7060; J9190; J9263; J9299